=== PATIENT | female | born 1970 | race Caucasian/White ===

== ENCOUNTER 2018-05-09 10:20 | Outpatient (CLI) | payer OTHER ==
--- NOTE | 2018-05-09 12:51 | ULT ---
BILATERAL RENAL ULTRASOUND: History: Urinary tract infection. Evaluate for renal calculi. Comparison: None. Technique: Sagittal and transverse imaging of the kidneys performed. FINDINGS: Bilaterally, no hydronephrosis. Both kidneys have a normal cortical echotexture. Right kidney measure s 9.6 x 4.2 x 4.3 cm. Left kidney measures 11.4 x 5.9 x 4.5 cm. Questionable mild fullness of the proximal right ureter with a diameter of 1 cm. Urinary bladder is unremarkable. Both ureteral jets are appreciated. IMPRESSION: 1. No sonographic evidence of renal calculi. 2. Nonspecific slight fullness of the proximal right ureter, based upon sonographic images. Neverthel ess, both ureteral jets are appreciated and there is no evidence of pelvic or caliceal dilatation. POS: IWLBER
[2018-05-09 17:42] LABS: Bilirubin Negative (Negative); Blood, Urine Negative (Negative); Clarity CLEAR (Clear); Glucose, Urine (Dipstick) Negative (Negative); Leukocyte Negative (Negative); Nitrite Negative (Negative); Protein, Urine (Dipstick) Negative (Neg-Trace); Specific Gravity, Urine 1.007 (1.002-1.036); Urobilinogen 0.2 mg/dL (0.2-1.0); pH, Urine 6.5 (5.0-9.0)
[2018-05-09 17:50] LABS: Anion Gap 15 mmol/L (10-20); BUN (Urea Nitrogen) 17 mg/dL (7.0-18.7); Calc. Creatinine Clearance 0 mL/min (70-130); Calcium 10.2 mg/dL (7.8-10.44); Carbon Dioxide 25 mmol/L (22-29); Chloride 102 mmol/L (98-107); Estimated GFR-MDRD 69; Glucose 93 mg/dL (70-105); Potassium 4.3 mmol/L (3.5-5.1); Sodium 138 mmol/L (136-145); Uric Acid 4.8 mg/dL (2.6-6.0)
[2018-05-09 18:07] LABS: RBC/HPF None Seen HPF (0-3); Squamous Epithelial 0-3 HPF (0-3); WBC/HPF None Seen HPF (0-3)
[2018-05-09 18:08] LABS: Bacteria/HPF None Seen HPF (None Seen); Hyaline Casts/LPF NONE SEEN LPF (0-3 Hyaline)
--- NOTE | 2018-05-10 09:34 | RAD ---
ONE VIEW ABDOMEN: History: Urinary tract infection. Evaluate for renal calculi. Comparison: None. FINDINGS: Nonspecific bowel gas pattern. There do appear to be punctate calcifications projecting over the expe cted level of the left renal silhouette. No obvious calcification along the expected course of either ureter. Calcification in the left and right hemipelvis are presumed to be phleboliths. Fusion hardwa re in the lumbosacral junction is noted. IMPRESSION: Possible left renal calculi. POS: WILBER
== END 2018-05-09 10:21 | disposition home or self-care (01) ==
LOC: BURULT 10:20
PROVIDERS: ATTEND Urology
DX: N39.0 Urinary tract infection, site not specified (principal); N20.0 Calculus of kidney; Z84.1 Family history of disorders of kidney and ureter
CPT/HCPCS: 36415; 74018; 76770; 80048; 81001; 83970; 84550; 87086